=== PATIENT | female | born 1950 | race Caucasian/White ===

== ENCOUNTER 2016-07-30 12:17 | Day surgery (SDC) | payer MEDICARE, OTHER ==
[~2016-07-30] VITALS: Ht 160 cm; Wt 73.8 kg
[~2016-07-30 12:17] MED LIST: NORCO 325 MG-51 TAB PO; SYNTHROID0.05 MG/TA PO
[2016-07-30] MEDS ORDERED: TYLENOL 325MG325 MG PO (12:42)
[2016-07-30 12:45] VITALS: BP 116/68; PULSE 80; TEMP 98.2
[2016-07-30 15:00] VITALS: BP 103/62; PULSE 79; TEMP 97.7
[2016-07-30 15:15] VITALS: BP 109/68; PULSE 82
== END 2016-07-30 15:25 | disposition home or self-care (01) ==
LOC: SDCO 12:17
DX: Z12.11 Encounter for screening for malignant neoplasm of colon (principal); K62.1 Rectal polyp; E03.9 Hypothyroidism, unspecified; Z85.3 Personal history of malignant neoplasm of breast; M19.012 Primary osteoarthritis, left shoulder; E78.00 Pure hypercholesterolemia, unspecified; E66.3 Overweight; Z79.899 Other long term (current) drug therapy
CPT/HCPCS: OP; J2250; J2405; J3010; J7030

== ENCOUNTER → 2016-12-26 | Outpatient (CLI) | payer MEDICARE, OTHER ==
[~2016-12-26] MED LIST changes: +TYLENOL 325MG325 MG PO
== END ==
LOC: ZCOL.LAB 16:26
DX: M79.604 Pain in right leg (principal)

== ENCOUNTER → 2016-12-27 | Outpatient (CLI) | payer MEDICARE, OTHER | LOC: COL.VAS 09:07 | DX: M79.89 Other specified soft tissue disorders (principal); R79.89 Other specified abnormal findings of blood chemistry ==

== ENCOUNTER → 2017-01-23 | Outpatient (CLI) | payer MEDICARE, OTHER | LOC: MC.RAD 07:40 | DX: Z12.31 Encounter for screening mammogram for malignant neoplasm of breast (principal); Z98.890 Other specified postprocedural states ==

== ENCOUNTER → 2018-03-17 | Outpatient (CLI) | payer MEDICARE, OTHER | LOC: MC.RAD 13:39 | DX: Z12.31 Encounter for screening mammogram for malignant neoplasm of breast (principal); Z98.890 Other specified postprocedural states ==

== ENCOUNTER → 2019-01-11 | Outpatient (CLI) | payer MEDICARE, OTHER | LOC: COL.RAD 12:49 | DX: M75.111 Incomplete rotator cuff tear or rupture of right shoulder, not specified as traumatic (principal); S46.811A Strain of other muscles, fascia and tendons at shoulder and upper arm level, right arm, initial encounter ==

== ENCOUNTER 2019-02-22 07:51 | Outpatient (RCR) | payer MEDICARE, OTHER | END 2019-05-23 | disposition home or self-care (01) | LOC: WSC | DX: Z98.890 Other specified postprocedural states (principal) ==

== ENCOUNTER 2019-04-20 10:30 | Outpatient (RCR) | payer MEDICARE, OTHER | END 2019-05-28 11:00 | disposition home or self-care (01) | LOC: WSC 10:30 | DX: Z98.890 Other specified postprocedural states (principal) ==

== ENCOUNTER → 2019-05-13 | Outpatient (CLI) | payer MEDICARE, OTHER | LOC: WSPT 04-09 09:45 → MC.RAD 10:00 | DX: Z12.31 Encounter for screening mammogram for malignant neoplasm of breast (principal) ==

== ENCOUNTER 2020-04-29 12:31 | Emergency (ER) | payer MEDICARE, OTHER ==
[~2020-04-29] VITALS: Ht 162.6 cm; Wt 77.3 kg
[2020-04-29 13:05] VITALS: TEMP 99.2
[2020-04-29 14:33] LABS: BASO % 0.2 % (0.0-2.0); GRAN # 7.3 (1.4-6.5); GRAN % 84.8 % (42.2-75.2); HEMATOCRIT 47.4 % (37.0-47.0); HEMOGLOBIN 15.7 g/dl (12.5-16.0); LYMPH # 0.6 (1.2-3.4); MEAN CELL VOLUME 91 fl (80.0-100.0); MEAN CORPUSCULAR HEMOGLOBIN 30 pg (27.0-31.0); MEAN CORPUSCULAR HGB CONC 33 g/dl (33.0-37.0); MEAN PLATELET VOLUME 11.9 fl (7.4-10.4); MONO # 0.7 (0.1-0.6); MONO % 7.7 % (1.7-9.3); PLATELET COUNT 148 K/mm3 (130-400); REDCELL DISTRIBUTION WIDTH-CV 12.8 % (11.5-14.5)
[2020-04-29 14:44] LABS: ALBUMIN 4.7 gm/dL (3.5-5.0); BILIRUBIN,TOTAL 0.9 mg/dL (0.0-1.0); CALCIUM 9.1 mg/dL (8.4-10.2); CREATININE, serum 0.77 (0.52-1.25); POTASSIUM 3.8 mmol/L (3.4-5.0); TOTAL PROTEIN 7.5 gm/dL (6.4-8.2)
[2020-04-29 16:42] VITALS: BP 132/72; PULSE 88
== END 2020-04-29 16:50 | disposition home or self-care (01) ==
LOC: COL.ER 12:31
PROVIDERS: Emergency Medicine
DX: U07.1 COVID-19 (principal); R31.9 Hematuria, unspecified; Z88.0 Allergy status to penicillin; Z88.2 Allergy status to sulfonamides; Z88.1 Allergy status to other antibiotic agents

== ENCOUNTER → 2020-10-03 | Outpatient (CLI) | payer MEDICARE, OTHER | LOC: COL.RAD 10:19 | DX: Q79.1 Other congenital malformations of diaphragm (principal); Z86.16 Personal history of COVID-19 ==

== ENCOUNTER → 2020-11-20 | Outpatient (CLI) | payer MEDICARE, OTHER | LOC: MC.RAD 10-20 13:15 | DX: Z12.31 Encounter for screening mammogram for malignant neoplasm of breast (principal) ==

== ENCOUNTER → 2021-04-09 | Outpatient (CLI) | payer MEDICARE, OTHER | LOC: COL.PUL 08:30 | DX: R06.00 Dyspnea, unspecified (principal) ==

== ENCOUNTER → 2021-05-02 | Outpatient (CLI) | payer MEDICARE, OTHER | LOC: COL.VAS 13:54 | DX: R06.00 Dyspnea, unspecified (principal) ==

== ENCOUNTER → 2022-01-01 | Outpatient (CLI) | payer MEDICARE, OTHER | LOC: MC.RAD 12-05 14:30 | DX: Z12.31 Encounter for screening mammogram for malignant neoplasm of breast (principal) ==

== ENCOUNTER 2022-07-31 07:04 | Day surgery (SDC) | payer MEDICARE, OTHER ==
[2022-07-31] VITALS (15 sets, daily range): BP systolic 96–137; BP diastolic 49–87; PULSE 67–82; TEMP 98.3
[~2022-07-31] VITALS: Ht 162.6 cm; Wt 85.7 kg
[2022-07-31 08:01] LABS: HEMATOCRIT 44.8 % (37.0-47.0); HEMOGLOBIN 14.8 g/dl (12.5-16.0); MEAN CELL VOLUME 91 fl (80.0-100.0); MEAN CORPUSCULAR HEMOGLOBIN 30 pg (27-31); MEAN CORPUSCULAR HGB CONC 33 g/dl (33.0-37.0); MEAN PLATELET VOLUME 10.9 fl (7.4-10.4); PLATELET COUNT 242 K/mm3 (130-400); RED BLOOD COUNT 4.91 M/mm3 (4.10-5.30); REDCELL DISTRIBUTION WIDTH-CV 11.8 % (11.5-14.5)
[2022-07-31 08:09] LABS: PROTHROMBIN TIME 11.9 SECONDS (9.7-12.8)
[2022-07-31 08:11] LABS: PARTIAL THROMBOPLASTIN TIME 32.7 SECONDS (26.0-37.0)
[2022-07-31 08:22] LABS: CALCIUM 9.4 mg/dL (8.4-10.2); CREATININE, serum 0.77 mg/dL (0.57-1.11); POTASSIUM 3.9 mmol/L (3.5-4.5)
[2022-07-31] MEDS ORDERED: ASPIRIN 81M81 MG/TA2 PO (08:49)
[2022-07-31] MEDS ORDERED: PROTONIX 40MG T40 MG PO (08:49)
--- NOTE | 2022-07-31 09:14 | NUR ---
SEE MERGE FOR ALL MEDICATION ADMINISTRATION TIMES/DOSAGES AND INTRA/POST PROCEDURE SEDATION ASSESSMENTS.
[2022-07-31] MEDS ORDERED: LIPITOR20 MG PO (10:42)
--- NOTE | 2022-07-31 13:10 | NUR ---
All air removed from band in 2-3ml incrients.No bleeding observed at site.Discharge instructions given to pt.Pt verbalizes understanding.Pt escorted out via wheelchair by this nurse.
== END 2022-07-31 17:21 ==
LOC: COL.CAR 07:04
PROVIDERS: Internal Medicine Cardiovascular Disease
DX: R07.89 Other chest pain (principal); R06.09 Other forms of dyspnea; R73.03 Prediabetes; J84.10 Pulmonary fibrosis, unspecified; R03.0 Elevated blood-pressure reading, without diagnosis of hypertension; Z86.16 Personal history of COVID-19; Z85.3 Personal history of malignant neoplasm of breast; Z79.82 Long term (current) use of aspirin; R94.39 Abnormal result of other cardiovascular function study
CPT/HCPCS: C1769; J1644; J2250; J3010; Q9967

== ENCOUNTER → 2024-02-10 | Outpatient (CLI) | payer MEDICARE, OTHER ==
[~2024-02-10] MED LIST changes: +ASPIRIN 81M81 MG/TA2 PO; +LIPITOR20 MG PO; +PROTONIX 40MG T40 MG PO
== END ==
LOC: MC.RAD 14:15
DX: Z12.31 Encounter for screening mammogram for malignant neoplasm of breast (principal); Z98.890 Other specified postprocedural states